=== PATIENT | male | born 1985 | race Caucasian/White ===

== ENCOUNTER 2020-09-25 12:01 | Emergency (ER) | payer MEDICAID ==
[~2020-09-25] VITALS: Ht 175.3 cm; Wt 101.4 kg
[~2020-09-25 12:01] MED LIST: CARI350T PO; CLIN150C8 PO; HYDR-4383 PO
[2020-09-25 12:36] VITALS: BP 114/78
== END 2020-09-25 15:42 | disposition left against medical advice (07) ==
LOC: ER 12:02
DX: R11.0 Nausea (principal); Z53.21 Procedure and treatment not carried out due to patient leaving prior to being seen by health care provider